=== PATIENT | male | born 1950 | race Caucasian/White ===

== ENCOUNTER 2022-08-04 08:07 | Day surgery (SDC) | payer MEDICARE ==
[~2022-08-04] VITALS: Ht 172.7 cm; Wt 99.8 kg
[~2022-08-04 08:07] MED LIST: ASPIRIN EC81 MG PO; CIPRO500 MG PO; CIPROFLOXACIN250 MG PO; CIPROFLOXACN500 MG PO; COZAAR100 MG PO; DETROL LA4 MG PO; DILAUDID 2MG2 MG/TA1 PO; DILAUDID 2MG2 MG/TAB PO; DILAUDID2 MG OR; ERLEADA60 MG PO; LABETALOL HYDR200 MG PO; LABETALOL200 MG PO; LIPITOR20 MG PO; LIPITOR40 MG PO; LUPRON DEPOT30 MG IM; METOPROL TAR50 MG PO; NIFEDIPINE30 MG PO; NORVASC10 M1 PO; PLAVIX75 MG PO; PROSCAR5 MG PO; TAMSULOSIN HCL0.4 MG PO; ZOCOR20 MG PO
[2022-08-04 10:07] VITALS: BP 151/98
== END 2022-08-04 10:20 | disposition home or self-care (01) ==
LOC: ENDO 08:07 → ORM 08:45 → ENDO 10:20
PROVIDERS: ATTEND Surgery
PROC: 0DBP8ZX Excision of Rectum, Via Natural or Artificial Opening Endoscopic, Diagnostic (ICD-10-PCS; principal; 2022-08-04)
DX: K62.7 Radiation proctitis (principal); K62.5 Hemorrhage of anus and rectum; I10 Essential (primary) hypertension; Y84.2 Radiological procedure and radiotherapy as the cause of abnormal reaction of the patient, or of later complication, without mention of misadventure at the time of the procedure; Z85.46 Personal history of malignant neoplasm of prostate; Z92.3 Personal history of irradiation